=== PATIENT | male | born 1995 | race Caucasian/White ===

== ENCOUNTER 2017-10-19 12:55 | Emergency (ER) | payer OTHER ==
[~2017-10-19] VITALS: Ht 182.9 cm; Wt 77.1 kg
[2017-10-19] MEDS ORDERED: Ketorolac 60mg Inj IM ONE (13:30)
[2017-10-19 14:24] VITALS: BP 123/71
[2017-10-19] MEDS ORDERED: Morphine Sulfate 4mg/ml Inj IM ONE (14:45)
[2017-10-19] MEDS ORDERED: IBUPROFEN600 MG ORAL (15:32)
[2017-10-19] MEDS ORDERED: TAMIFLU75 MG ORAL (15:32)
[2017-10-19] MEDS ORDERED: PROMETHAZINE-D118 ML ORAL (15:32)
[2017-10-19 15:47] VITALS: BP 128/60
--- NOTE | 2017-10-19 23:14 | Emergency Room Report ---
History of Present Illness General Chief Complaint: Upper Respiratory Illness Source: Patient Present Illness [facility] The patient is a 22-year-old male presenting for sudden onset of fever, chills, myalgia, cough and fatigue yesterday. He is unsure of any sick contacts. He denies recent travel. He denies flu shot this year. Denies any medical history. He denies other symptoms including shortness of breath, abdominal pain , diarrhea Allergies: Coded Allergies: No Known Allergies (Unverified , 10/19/17) Patient History Past Medical History: see triage record Pertinent Family History: none Reviewed Nursing Documentation: PMH: Agreed, PSxH: Agreed Nursing Documentation-PMH Past Medical History: No Stated History Review of Systems All Other Systems: negative except mentioned in HPI Physical Exam Vital Signs Date Time Temp Pulse Resp B/P (MAP) Pulse Ox O2 Delivery O2 Flow Rate FiO2 10/19/17 13:06 99.7 125 22 123/71 100 Room Air Sp02 EP Interpretation: reviewed, normal General Appearance: no apparent distress, alert, GCS 15, non-toxic Head: normocephalic, atraumatic Eyes: bilateral eye normal inspection, bilateral eye PERRL ENT: hearing grossly normal, no angioedema, normal voice, pharyngeal erythema Neck: full range of motion, supple/symm/no masses Respiratory: chest non-tender, lungs clear, normal breath sounds, speaking full sentences Cardiovascular #1: regular rate, rhythm, no edema Musculoskeletal: back normal, gait/station normal, normal range of motion, non- tender Neurologic: alert, oriented x3, responsive, motor strength/tone normal, sensory intact, speech normal Psychiatric: judgement/insight normal, memory normal, mood/affect normal, no suicidal/homicidal ideation Skin: normal color, no rash, warm/dry, well hydrated Medical Decision Making PA Attestation Dr. Sandoval is my supervising physician. Patient management was discussed with my supervising physician Diagnostic Impression: Primary Impression: Influenza ER Course The patient is a 22-year-old male presenting for myalgia, cough, fatigue, and fever Differential diagnosis include but not limited to influenza, pharyngitis, sinusitis, AOM, bronchitis, PNA Physical exam: Patient is febrile. Lethargic, tachycardia HEENT exam reveals pharyngeal erythema. No exudate. Nasal congestion Lungs are clear to auscultation bilaterally. No respiratory distress Skin warm and dry Abd soft and non tender The patient is given IM Toradol and states that he is feeling better but pain has continued. He is then given morphine Influenza swab negative but we'll still treat patient due to sudden onset of flulike symptoms The patient will be treated for influenza with prescription for Motrin, Tamiflu , and cough medication. he is given strict ER precautions. She was told this is highly contagious. Microbiology Date/Time Source Procedure Growth Status 10/19/17 14:40 Nasal Nares Influenza Types A,B Antigen (JUNIOR) - Final Complete Lab Results Impression neg Last Vital Signs Date Time Temp Pulse Resp B/P (MAP) Pulse Ox O2 Delivery O2 Flow Rate FiO2 10/19/17 15:47 105 16 128/60 97 Room Air 10/19/17 15:16 99.7 Status: improved Disposition: HOME, SELF-CARE Condition: Improved Scripts D-Methorphan Hb/Prometh Hcl* (PROMETHAZINE-DM SYRUP*) 118 Ml Syrup 5 ML ORAL Q6H Y for For Cough, #118 ML 0 Refills Prov: SUHAIL ARREAGA.A. 10/19/17 Ibuprofen* (MOTRIN*) 600 Mg Tablet 600 MG ORAL Q8H Y for For Pain, #30 TAB 0 Refills Prov: SUHAIL ARREAGA P.A. 10/19/17 Oseltamivir Phosphate (Tamiflu) 75 Mg Capsule 75 MG ORAL TWICE A DAY, #10 CAP Prov: BETTIEANSUHAIL P.A. 10/19/17 Referrals: [facility],REFERRING (PCP) NOT CHOSEN [facility],REFERRING Patient Instructions: Influenza, Adult Additional Instructions: I discussed my findings with the patient. All questions and concerns have been answered. Treatment and medication compliance have been addressed. I advised the patient that they need to follow up with PMD in 3-5 days. Return to ED if pain remains or worsens, cough worsens or remains, you notice blood in your sputum, you notice wheezing, you experience a fever, or if needed for any reason. Patient verbalized understanding of discharge instructions. SUHAIL ARREAGA Oct 19, 2017 23:14
== END 2017-10-19 15:39 | disposition home or self-care (01) ==
LOC: EMR 15:15
DX: J11.1 Influenza due to unidentified influenza virus with other respiratory manifestations (principal)
CPT/HCPCS: 86710; 96372; 99284; J2270

== ENCOUNTER 2017-10-27 21:07 | Emergency (ER) | payer OTHER ==
[~2017-10-27] VITALS: Ht 182.9 cm; Wt 58.1 kg
[~2017-10-27 21:07] MED LIST: IBUPROFEN600 MG ORAL; PROMETHAZINE-D118 ML ORAL; TAMIFLU75 MG ORAL
[2017-10-27 21:20] VITALS: BP 101/71
[2017-10-27] MEDS ORDERED: HYDROCODON-ACE1 EA15 ORAL (21:30)
[2017-10-27] MEDS ORDERED: CLINDAMYCIN HC300 MG ORAL (21:30)
--- NOTE | 2017-10-27 21:30 | Emergency Room Report ---
History of Present Illness General Chief Complaint: Toothache Source: Patient Present Illness HPI Is a 22-year-old male with a laceration. He presents with chief complaint of dental pain. Onset for last 2-3 days. Is present he is coming in an angle. Because her condition to come and noticed a small abscess. It is 8/10. Worse with chewing. No fever chills but no drainage. No other complaint. Allergies: Coded Allergies: No Known Allergies (Unverified , 10/19/17) Patient History Past Medical History: see triage record, old chart reviewed Past Surgical History: none Pertinent Family History: none Social History: Denies: smoking Immunizations: other Reviewed Nursing Documentation: PMH: Agreed, PSxH: Agreed Nursing Documentation-PMH Past Medical History: No Stated History Review of Systems Eye: Denies: eye pain, blurred vision ENT: Denies: ear pain, nose congestion, throat swelling Respiratory: Denies: cough, shortness of breath Cardiovascular: Denies: chest pain, palpitations Gastrointestinal: Denies: abdominal pain, diarrhea, nausea, vomiting Musculoskeletal: Denies: back pain, joint pain Skin: Denies: rash Neurological: Denies: headache, numbness Endocrine: Denies: increased thirst, increased urine Hematologic/Lymphatic: Denies: easy bruising All Other Systems: negative except mentioned in HPI Physical Exam Vital Signs Date Time Temp Pulse Resp B/P (MAP) Pulse Ox O2 Delivery O2 Flow Rate FiO2 10/27/17 21:12 97.7 105 17 101/71 98 Room Air vitals normal Sp02 EP Interpretation: reviewed, normal General Appearance: well appearing, no apparent distress, alert Head: normocephalic, atraumatic Eyes: bilateral eye PERRL, bilateral eye EOMI ENT: hearing grossly normal, normal pharynx, other - Small 1-2 mm abscess in the gum over the right lower third molar. No trismus. Neck: full range of motion, supple, no meningismus Respiratory: chest non-tender, lungs clear, normal breath sounds Cardiovascular #1: regular rate, rhythm, no murmur Gastrointestinal: normal bowel sounds, non tender, no mass, no organomegaly, no bruit, non-distended Musculoskeletal: back normal, gait/station normal, normal range of motion Psychiatric: mood/affect normal Skin: warm/dry Medical Decision Making Diagnostic Impression: Primary Impression: Dental abscess ER Course Patient with a dental abscess. No deep infection. We'll discharge him. He'll need to see a dentist for tooth extraction. Last Vital Signs Date Time Temp Pulse Resp B/P (MAP) Pulse Ox O2 Delivery O2 Flow Rate FiO2 10/27/17 21:12 97.7 105 17 101/71 98 Room Air Status: improved Disposition: HOME, SELF-CARE Condition: Stable Scripts Hydrocodone/Acetaminophen 5-325* (HYDROCODONE/ACETAMINOPHEN 5-325*) 1 Each Tablet 1 TAB ORAL Q6H Y for For Pain, #15 TAB 0 Refills Prov: NAM MARTINEZ M.D. 10/27/17 Clindamycin Hcl (CLINDAMYCIN HCL) 300 Mg Capsule 300 MG ORAL THREE TIMES A DAY, #21 CAP Prov: NAM MARTINEZ M.D. 10/27/17 Additional Instructions: Followup with dentist MOIZ. Return for increasing pain, fever, chills or any concern. NAM MARTINEZ M.D. Oct 27, 2017 21:30
[2017-10-27 22:03] VITALS: BP 101/71
== END 2017-10-27 22:03 | disposition home or self-care (01) ==
LOC: EMR 22:03
DX: K04.7 Periapical abscess without sinus (principal)
CPT/HCPCS: 99284